=== PATIENT | female | born 1960 | race Caucasian/White ===

== ENCOUNTER → 2017-11-16 | Outpatient (CLI) | payer MEDICAID ==
--- NOTE | 2017-11-16 11:37 | RADRPT ---
EXAM DATE: 11/16/2017 10:23 AM EDT AGE/SEX: 57 years / Female INDICATIONS: Other abnormalities in breathing. Pulmonary work up. Emphysema. CLINICAL DATA: This is the patient's initial encounter. Patient reports that signs and symptoms have been present for 1 day and indicates a pain score of 0/10. MEDICAL/SURGICAL HISTORY: Chronic obstructive pulmonary disease. Emphysema. Hypertension. Sm oker. None. COMPARISON: No prior [facility] exams available for comparison. FINDINGS: PA and lateral views of the chest demonstrate the lungs to be symmetrically inflated without evidence of mass, infiltrate or effusion. Bullous changes present in the right upper lobe. The cardiomediasti nal contours are unremarkable. Osseous structures are intact. CONCLUSION: Hyperinflation and underlying emphysema. There is no acute cardiopulmonary disease. Electronically signed by: Lincoln Siu MD 11/16/2017 11:36 AM EDT
== END ==
LOC: HRSP 10:03
PROVIDERS: ATTEND Internal Medicine Sleep Medicine
DX: R06.89 Other abnormalities of breathing (principal)
CPT/HCPCS: 71046; 94060; 94726; 94729

== ENCOUNTER 2017-11-23 13:01 | Emergency (ER) | payer MEDICAID ==
[~2017-11-23] VITALS: Ht 165.1 cm; Wt 62.7 kg
[2017-11-23 13:07] VITALS: BP 115/83; PULSE 108; RESP 18; TEMP 98.4; O2SAT 96
[2017-11-23] MEDS ORDERED: PRED5TAB PO (13:27)
[2017-11-23] MEDS ORDERED: ENAL10TA PO (13:27)
[2017-11-23] MEDS ORDERED: EMTR1TAB2 PO (13:27)
[2017-11-23] MEDS ORDERED: SPIRCAP INH (13:27)
[2017-11-23 13:49] LABS: CHLORIDE 109 MEQ/L (98-107); SODIUM (NA) 140 MEQ/L (136-145)
[2017-11-23 13:51] LABS: BASOPHIL % 0.3 % (0.0-2.0); EOSINOPHIL % 0.6 % (0.0-4.0); HEMATOCRIT 46.7 % (35.0-46.0); HEMOGLOBIN 15.6 GM/DL (11.6-15.3); LYMPH % 28.2 % (9.0-44.0); LYMPHOCYTE # 1.3 TH/MM3 (1.0-4.8); MEAN CELL VOLUME 95.2 FL (80.0-100.0); MEAN CORPUSCULAR HEMOGLOBIN 31.7 PG (27.0-34.0); MEAN CORPUSCULAR HGB CONC 33.3 % (32.0-36.0); MEAN PLATELET VOLUME 7.6 FL (7.0-11.0); MONO % 7.8 % (0.0-8.0); MONOCYTE # 0.4 TH/MM3 (0-0.9); NEUT % 63.1 % (16.0-70.0); PLATELET COUNT 259 TH/MM3 (150-450); RED CELL DISTRIBUTION WIDTH 14.5 % (11.6-17.2); WHITE BLOOD COUNT 4.7 TH/MM3 (4.0-11.0)
[2017-11-23 13:53] LABS: ALBUMIN 3.9 GM/DL (3.4-5.0); BICARBONATE 23.9 MEQ/L (21.0-32.0); BLOOD UREA NITROGEN 28 MG/DL (7-18); CALCIUM 8.7 MG/DL (8.5-10.1); GLUCOSE,RANDOM 102 MG/DL (74-106)
[2017-11-23 13:54] LABS: BILIRUBIN, URINE NEG (NEG); BLOOD, URINE NEG (NEG); GLUCOSE,URINE NEG (NEG); KETONE, URINE NEG (NEG); NITRITE,URINE NEG (NEG); PH, URINE 6.5 (5.0-8.5); URINE COLOR YELLOW (YELLW/STRAW); URINE LEUKOCYTE ESTERASE SMALL (NEG)
[2017-11-23 13:55] LABS: PROTHROMBIN TIME - PATIENT 9.9 SEC (9.8-11.6)
--- NOTE | 2017-11-23 13:55 | RADRPT ---
EXAM DATE: 11/23/2017 1:46 PM EDT AGE/SEX: 57 years / Female INDICATIONS: Left epigastric pain. Patient states she has some lumps around the left diaphragm & mid chest that are painful. CLINICAL DATA: This is the patient's initial encounter. Patient reports that signs and symptoms have been present for 1 month and indicates a pain score of 7/10. MEDICAL/SURGICAL HISTORY: Chronic obstructive pulmonary disease. Arthritis. Hepatitis C. Smo ker. HIV. Tonsillectomy. section. [place] [facility] [place]. . FINDINGS: The lungs are clear without infiltrate, nodule, or mass. There is no appreciable pleural effusion for technique. Heart and mediastinum are unremarkable. COPD is again seen. CONCLUSION: No acute cardiopulmonary disease. Electronically signed by: Katey Salvador MD 11/23/2017 1:53 PM EDT
[2017-11-23 13:56] LABS: ALT (GPT) 109 U/L (10-53); AST (GOT) 119 U/L (15-37); GLOMERULAR FILTRATION RATE 57 ML/MIN (>89)
[2017-11-23 13:57] LABS: TOTAL BILIRUBIN ADULT 0.5 MG/DL (0.2-1.0); TOTAL PROTEIN 8.6 GM/DL (6.4-8.2)
[2017-11-23 13:59] LABS: ALKALINE PHOSPHATASE 59 U/L (45-117)
[2017-11-23 14:01] LABS: TROPONIN I LESS THAN 0.02 NG/ML (0.02-0.05)
[2017-11-23 14:14] LABS: MUCUS URINE FEW /lpf (OCC)
[2017-11-23 14:15] LABS: BACTERIA, URINE RARE /hpf
--- NOTE | 2017-11-23 14:37 | PD ---
HPI Chief Complaint: Abdominal Pain Time Seen by Provider: 13:14 Travel History International Travel<30 days: No Contact w/Intl Traveler<30days: No Traveled to known affect area: No History of Present Illness HPI 57-year-old female presents the ER for evaluation of possible abdominal mass. Patient noticed a mass in her abdomen about 2 years ago and says that it comes and goes but has been getting bigger for the last few weeks and is bothering her and she does not know what it is. Patient has no abdominal pain or shortness of breath or chest pain and states that the mass is not bothering her has not given her any symptoms but she still does not know why it is. She has no fever or chills or night sweats. Patient has history of HIV and she is compliant with her medications, she is unsure what was a last CD4 count but she follows up with [facility] Past Medical History Arthritis: Yes Autoimmune Disease: Yes (HIV) COPD: Yes Diminished Hearing: No Hepatitis: Yes (HEP C ) Tetanus Vaccination: < 5 Years Influenza Vaccination: No ?: Not Past Surgical History Section: Yes Tonsillectomy: Yes Social History Alcohol Use: No Tobacco Use: Yes (1PPD) Substance Use: No Allergies-Medications (Allergen,Severity, Reaction): Coded Allergies: Sulfa (Sulfonamide Antibiotics) (Verified Allergy, Intermediate, Rash, 11/23) Reported Meds & Prescriptions Reported Meds & Active Scripts Active Reported Prednisone 5 Mg Tab 5 Mg PO DAILY Enalapril (Enalapril Maleate) 10 Mg Tab 10 Mg PO DAILY Spiriva Handihaler (Tiotropium Inh) 18 Mcg Cap 18 Mcg INH DAILY 1 capsule = 18 mcg Odefsey (Pjvixzcyrrgtk-Mhjhtmlencz-Gxxtrqwrs Alafenam) 200-200-25 Mg Tab 1 Tab PO DAILY Review of Systems Except as stated in HPI: all other systems reviewed are Neg Physical Exam Narrative GENERAL: Alert oriented 3 no acute distress. SKIN: Focused skin assessment warm/dry. HEAD: Atraumatic. Normocephalic. EYES: Pupils equal and round. No scleral icterus. No injection or drainage. ENT: No nasal bleeding or discharge. Mucous membranes pink and moist. NECK: Trachea midline. No JVD. CARDIOVASCULAR: Regular rate and rhythm. No murmur appreciated. RESPIRATORY: No accessory muscle use. Clear to auscultation. Breath sounds equal bilaterally. GASTROINTESTINAL: Abdomen soft, non-tender, nondistended. Hepatic and splenic margins not palpable. MUSCULOSKELETAL: No obvious deformities. No clubbing. No cyanosis. No edema. NEUROLOGICAL: Awake and alert. No obvious cranial nerve deficits. Motor grossly within normal limits. Normal speech. PSYCHIATRIC: Appropriate mood and affect; insight and judgment normal. Data Data Last Documented VS Vital Signs Date Time Temp Pulse Resp B/P (MAP) Pulse Ox O2 Delivery O2 Flow Rate FiO2 11/23/17 13:27 20 11/23/17 13:07 98.4 108 115/83 (94) 96 Orders Orders Complete Blood Count With Diff (11/23/17 13:31) Comprehensive Metabolic Panel (11/23/17 13:31) Lipase (11/23/17 13:31) Act Partial Throm Time (Ptt) (11/23/17 13:31) Prothrombin Time / Inr (Pt) (11/23/17 13:31) Troponin I (11/23/17 13:31) Urinalysis - C+S If Indicated (11/23/17 13:31) Chest, Single Ap (11/23/17 ) Ct Abd/Pel W/O Iv Contrast (11/23/17 ) Ed Discharge Order (11/23/17 14:51) Labs Laboratory Tests Test 11/23/17 13:20 11/23/17 13:40 White Blood Count 4.7 TH/MM3 Red Blood Count 4.90 MIL/MM3 Hemoglobin 15.6 GM/DL Hematocrit 46.7 % Mean Corpuscular Volume 95.2 FL Mean Corpuscular Hemoglobin 31.7 PG Mean Corpuscular Hemoglobin Concent 33.3 % Red Cell Distribution Width 14.5 % Platelet Count 259 TH/MM3 Mean Platelet Volume 7.6 FL Neutrophils (%) (Auto) 63.1 % Lymphocytes (%) (Auto) 28.2 % Monocytes (%) (Auto) 7.8 % Eosinophils (%) (Auto) 0.6 % Basophils (%) (Auto) 0.3 % Neutrophils # (Auto) 3.0 TH/MM3 Lymphocytes # (Auto) 1.3 TH/MM3 Monocytes # (Auto) 0.4 TH/MM3 Eosinophils # (Auto) 0.0 TH/MM3 Basophils # (Auto) 0.0 TH/MM3 CBC Comment DIFF FINAL Differential Comment Prothrombin Time 9.9 SEC Prothromb Time International Ratio 1.0 RATIO Activated Partial Thromboplast Time 25.0 SEC Blood Urea Nitrogen 28 MG/DL Creatinine 1.00 MG/DL Random Glucose 102 MG/DL Total Protein 8.6 GM/DL Albumin 3.9 GM/DL Calcium Level 8.7 MG/DL Alkaline Phosphatase 59 U/L Aspartate Amino Transf (AST/SGOT) 119 U/L Alanine Aminotransferase (ALT/SGPT) 109 U/L Total Bilirubin 0.5 MG/DL Sodium Level 140 MEQ/L Potassium Level 4.1 MEQ/L Chloride Level 109 MEQ/L Carbon Dioxide Level 23.9 MEQ/L Anion Gap 7 MEQ/L Estimat Glomerular Filtration Rate 57 ML/MIN Troponin I LESS THAN 0.02 NG/ML Lipase 269 U/L Urine Collection Type CLEAN CATCH Urine Color YELLOW Urine Turbidity CLEAR Urine pH 6.5 Urine Specific [place] 1.025 Urine Protein TRACE mg/dL Urine Glucose (UA) NEG mg/dL Urine Ketones NEG mg/dL Urine Occult Blood NEG Urine Nitrite NEG Urine Bilirubin NEG Urine Urobilinogen 0.2 MG/DL Urine Leukocyte Esterase SMALL Urine WBC 3-5 /hpf Urine Squamous Epithelial Cells 6-8 /hpf Urine Bacteria RARE /hpf Urine Mucus FEW /lpf Microscopic Urinalysis Comment CULT NOT INDICATED MDM Medical Decision Making Medical Screen Exam Complete: Yes Emergency Medical Condition: Yes Differential Diagnosis Lymphadenopathy, malignancy, medication side effects Narrative Course 57-year-old female here for evaluation of suspected mass in her abdomen that has been going on for the last year. She went to her primary care physician who was unable to feel the mass and she says she went to her infectious disease doctor who follows her for HIV and he recommended an MRI of the abdomen. Patient has no symptoms from the mass she does not have any pain or fever or weight loss or any other symptoms. Physical examination is normal, I am unable to feel the mass although she also has some soft tissue swelling in her sternum that could be lipoma. CAT scan of the abdomen and pelvis without contrast is normal explained to the patient that her kidney functions did not allow me to do IV contrast, I also discussed with her she ultimately needs an MRI continues to bother her to evaluate the suspected mass. I discussed with the patient that this suspected mass is given her any symptoms she will have to come to the ER but for now she can follow-up as an outpatient. Labs are within normal limits except for elevated liver enzymes and since the patient has hepatitis C. Patient will be discharged to follow-up with her primary care physician for MRI of the abdomen as an outpatient. Laboratory Tests Test 11/23/17 13:20 11/23/17 13:40 White Blood Count 4.7 TH/MM3 Red Blood Count 4.90 MIL/MM3 Hemoglobin 15.6 GM/DL Hematocrit 46.7 % Mean Corpuscular Volume 95.2 FL Mean Corpuscular Hemoglobin 31.7 PG Mean Corpuscular Hemoglobin Concent 33.3 % Red Cell Distribution Width 14.5 % Platelet Count 259 TH/MM3 Mean Platelet Volume 7.6 FL Neutrophils (%) (Auto) 63.1 % Lymphocytes (%) (Auto) 28.2 % Monocytes (%) (Auto) 7.8 % Eosinophils (%) (Auto) 0.6 % Basophils (%) (Auto) 0.3 % Neutrophils # (Auto) 3.0 TH/MM3 Lymphocytes # (Auto) 1.3 TH/MM3 Monocytes # (Auto) 0.4 TH/MM3 Eosinophils # (Auto) 0.0 TH/MM3 Basophils # (Auto) 0.0 TH/MM3 CBC Comment DIFF FINAL Differential Comment Prothrombin Time 9.9 SEC Prothromb Time International Ratio 1.0 RATIO Activated Partial Thromboplast Time 25.0 SEC Blood Urea Nitrogen 28 MG/DL Creatinine 1.00 MG/DL Random Glucose 102 MG/DL Total Protein 8.6 GM/DL Albumin 3.9 GM/DL Calcium Level 8.7 MG/DL Alkaline Phosphatase 59 U/L Aspartate Amino Transf (AST/SGOT) 119 U/L Alanine Aminotransferase (ALT/SGPT) 109 U/L Total Bilirubin 0.5 MG/DL Sodium Level 140 MEQ/L Potassium Level 4.1 MEQ/L Chloride Level 109 MEQ/L Carbon Dioxide Level 23.9 MEQ/L Anion Gap 7 MEQ/L Estimat Glomerular Filtration Rate 57 ML/MIN Troponin I LESS THAN 0.02 NG/ML Lipase 269 U/L Urine Collection Type CLEAN CATCH Urine Color YELLOW Urine Turbidity CLEAR Urine pH 6.5 Urine Specific [place] 1.025 Urine Protein TRACE mg/dL Urine Glucose (UA) NEG mg/dL Urine Ketones NEG mg/dL Urine Occult Blood NEG Urine Nitrite NEG Urine Bilirubin NEG Urine Urobilinogen 0.2 MG/DL Urine Leukocyte Esterase SMALL Urine WBC 3-5 /hpf Urine Squamous Epithelial Cells 6-8 /hpf Urine Bacteria RARE /hpf Urine Mucus FEW /lpf Microscopic Urinalysis Comment CULT NOT INDICATED Last 24 hours Impressions Chest X-Ray 11/23/17 0000 Signed Impressions: CONCLUSION: No acute cardiopulmonary disease. Abdomen/Pelvis CT 11/23/17 0000 Signed Impressions: CONCLUSION: 1. Small bilateral nonobstructing renal calculi. 2. Cholelithiasis without CT evidence to suggest acute cholecystitis. 3. No acute abnormality to explain the patient's pain. Diagnosis Primary Impression: Hepatitis C Qualified Codes: B18.2 - Chronic viral hepatitis C Additional Impression: Abdominal wall anomaly Additional Instructions: Follow-up with primary care physician and return to ER if symptoms change or do not improve. Disposition: 01 DISCHARGE HOME Condition: Stable George Martinez MD Nov 23, 2017 14:37
--- NOTE | 2017-11-23 14:41 | RADRPT ---
EXAM DATE: 11/23/2017 2:23 PM EDT AGE/SEX: 57 years / Female INDICATIONS: Left upper quadrant pain. CLINICAL DATA: This is the patient's initial encounter. Patient reports that signs and symptoms have been present for > 1 year and indicates a pain score of 8/10. MEDICAL/SURGICAL HISTORY: Chronic obstructive pulmonary disease. Hepatitis C. section . RADIATION DOSE: 8.54 CTDI (mGy) COMPARISON: No prior exams available for comparison. TECHNIQUE: Multiple contiguous axial images were obtained through the abdomen. Images were obtained using multiple row detector helical technique. Using dose reduction techniques, radiation dose was ke pt as low as reasonably achievable to obtain optimal diagnostic quality images. FINDINGS: Lower Lungs: The visualized lower lungs are clear. Liver: The liver has a homogeneous density without space-occupying lesion. There is no dilation of th e biliary tree. A tiny calcified gallstones seen within a decompressed gallbladder. Spleen: Homogeneous density without enlargement. Pancreas: Unremarkable without mass or calcification. Kidneys: Normal in size and shape. A total of 3 nonobstructing stones involving the left kidney and a single nonobstructing stone involving the right kidney. The stones measure 2 mm in diameter. No olman dence of mass or hydronephrosis. Adrenal Glands: Unremarkable. Aorta: The aorta and proximal iliac vessels are grossly unremarkable without aneurysmal dilation. Bowel/Mesentery: The bowel loops are grossly unremarkable. The cecum and sigmoid colon have a normal configuration. Abdominal Wall: Intact. Retroperitoneum: No evidence of adenopathy in the retrocrural, para-aortic, or deep pelvic regions. Bladder: Contours are smooth. Reproductive Organs: No abnormal masses or calcifications seen. Inguinal: The inguinal region is unremarkable without evidence of adenopathy. Bony Structures: Advanced osteoarthritis involving the right hip. Mild osteoarthritis involving the left hip.. CONCLUSION: 1. Small bilateral nonobstructing renal calculi. 2. Cholelithiasis without CT evidence to suggest acute cholecystitis. 3. No acute abnormality to explain the patient's pain. Electronically signed by: Anjum Agarwal MD 11/23/2017 2:40 PM EDT
== END 2017-11-23 15:27 | disposition home or self-care (01) ==
LOC: PHED 13:01
DX: B18.2 Chronic viral hepatitis C (principal); Q79.59 Other congenital malformations of abdominal wall; B20 Human immunodeficiency virus [HIV] disease; M19.90 Unspecified osteoarthritis, unspecified site; J44.9 Chronic obstructive pulmonary disease, unspecified; F17.200 Nicotine dependence, unspecified, uncomplicated
CPT/HCPCS: 71045; 74176; 80053; 81001; 83690; 84484; 85025; 85610; 85730